=== PATIENT | male | born 1990 | race Caucasian/White ===

== ENCOUNTER 2018-11-22 08:55 | Emergency (ER) | payer BC, OTHER ==
[2018-11-22 09:13] VITALS: BP 144/95; PULSE 122; TEMP 98.3; BMI 29.4
[2018-11-22] MEDS ORDERED: KETOROLAC TROMETHAMINE 60 MG/2 ML VIAL IM ONE (09:29)
--- NOTE | 2018-11-22 09:29 | PDOC ---
History of Present Illness - General Chief Complaint: Pain Stated Complaint: LT SHOULDER PAIN Time Seen by Provider: 11/22/18 09:11 History Source: Patient Exam Limitations: No Limitations - History of Present Illness Initial Comments: 11/22/18 09:43 Patient brought in by EMS with exquisite low back pain with spasm. States 3 days ago was lifting a very heavy water vessel up a flight of stairs when he felt a pull to his low back. Woke up following morning with significant back spasm that is progressively worsened to where he was unable to get out of his bed this morning and mother called EMS. Came to emergency department with spasm and radiating pain originating from low back that radiates up to shoulder area. Patient denies fever, denies numbness or tingling to toes although has some sciatic distribution to the left side with the spasm. Denies bowel or bladder dysfunction. Occurred: reports: just prior to arrival Severity: reports: moderate, severe Pain Location: reports: back Method of Injury: Yes: other (heavy lifitng ) Modifying Factors: improves with: None Loss of Consciousness: no loss of consciousness Associated Symptoms (Fall): denies symptoms, headache, trouble walking Past History - Travel Traveled outside of the country in the last 30 days: No Close contact w/someone who was outside of country & ill: No - Past Medical History Allergies/Adverse Reactions: Allergies Allergy/AdvReac Type Severity Reaction Status Date / Time No Known Allergies Allergy Verified 11/22/18 09:07 Home Medications: Ambulatory Orders Albuterol Sulfate Inhaler - [Ventolin HFA Inhaler -] 1 - 2 inh PO Q4H PRN #1 inhaler 09/14/13 Cyclobenzaprine HCl 10 mg PO Q8H PRN #14 tablet 11/22/18 Naproxen [Naprosyn -] 500 mg PO BID #30 tablet 11/22/18 Asthma: Yes COPD: No - Surgical History Abdominal Surgery: Yes (inguinal hernia) - Suicide/Smoking/Psychosocial Hx Smoking History: Never smoked Have you smoked in the past 12 months: No Information on smoking cessation initiated: No Hx Alcohol Use: No Drug/Substance Use Hx: No Substance Use Type: Marijuana Review of Systems - Review of Systems Able to Perform ROS?: Yes Is the patient limited French proficient: Yes Constitutional: Yes: Symptoms Reported, See HPI HEENTM: No: Symptoms Reported Respiratory: No: Symptoms reported ABD/GI: No: Symptoms Reported : No: Symptoms Reported Musculoskeletal: Yes: Symptoms Reported, See HPI, Back Pain, Muscle Pain Integumentary: Yes: See HPI. No: Symptoms Reported All Other Systems: Reviewed and Negative *Physical Exam - Vital Signs Last Vital Signs Temp Pulse Resp BP Pulse Ox 98.3 F 122 H 22 H 144/95 100 11/22/18 09:05 11/22/18 09:05 11/22/18 09:05 11/22/18 09:05 11/22/18 09:05 - Physical Exam General Appearance: Yes: Nourished, Appropriately Dressed, Apparent Distress, Moderate Distress HEENT: positive: JAMIE, Normal ENT Inspection, Normal Voice, TMs Normal, Pharynx Normal Neck: positive: Supple. negative: Tender Respiratory/Chest: positive: Lungs Clear, Normal Breath Sounds Gastrointestinal/Abdominal: positive: Soft Musculoskeletal: positive: Normal Inspection, Decreased Range of Motion, Muscle Spasm (palpable spasm noted to bilateral paravertebral spinous muscles, lumbar area with radiating pain worse on the left than the right that extends up to subscapular musculature. Patient has no true bone tenderness along cervical thoracic or lumbar spine processes without crepitus or step-offs. 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 Provided 2 Percocet tablets for severe pain today. Encouraged to follow up with orthopedist early next week for possible retesting/medication change/further evaluation and treatment. *DC/Admit/Observation/Transfer Diagnosis at time of Disposition: Spasm of back muscles - Discharge Dispostion Disposition: HOME Condition at time of disposition: Stable Decision to Admit order: No - Referrals Referrals: Tan Hastings DO [Staff Physician] - - Patient Instructions Printed Discharge Instructions: DI for Back Spasm Additional Instructions: Rest, no heavy lifting or exercise until pain is resolved Hot soaks to neck and low back as often as possible/hot showers or Jacuzzis No massage or therapy until spasm is gone Continue Naprosyn 500 mg tablet, 1 tablet every 8 hours for the next 3 days then as needed for pain and swelling Cyclobenzaprine 1-10mg every 8 hours as needed for spasm May take one half to one Percocet tablet for severe pain If not significant improvement within 24 hours with medication and rest regime, followup with private physician for change in medications and /or therapy. - Post Discharge Activity Forms/Work/School Notes: Back to Work
[2018-11-22] MEDS ORDERED: KETOROLAC TROMETHAMINE 60 MG/2 ML VIAL ONE (09:30)
[2018-11-22] MEDS ORDERED: CYCLOBENZAPRINE HCL 10 MG TABLET (FP) ONE (09:55)
[2018-11-22] MEDS ORDERED: CYCLOBENZAPRINE HCL 10 MG TABLET (FP) PO ONE (10:06)
== END 2018-11-22 10:01 | disposition home or self-care (01) ==
LOC: JERFT 08:55
PROC: 3E0233Z Introduction of Anti-inflammatory into Muscle, Percutaneous Approach (ICD-10-PCS; principal; 2018-11-22)
DX: M62.830 Muscle spasm of back (principal)
CPT/HCPCS: 96372; 99281-25